=== PATIENT | male | born 1965 | race Caucasian/White ===

== ENCOUNTER 2023-05-08 13:53 | Emergency (ER) | payer SELFPAY ==
[~2023-05-08] VITALS: Ht 167.6 cm; Wt 64.0 kg
[2023-05-08 13:59] VITALS: O2SAT 99
[2023-05-08 19:40] VITALS: BP 103/60; PULSE 77; RESP 20; TEMP 97.4
== END 2023-05-08 19:52 | disposition left against medical advice (07) ==
LOC: ER 13:53
DX: F10.129 Alcohol abuse with intoxication, unspecified (principal); R41.82 Altered mental status, unspecified; Y90.9 Presence of alcohol in blood, level not specified
CPT/HCPCS: 99283